=== PATIENT | female | born 1995 | race African-American/Black ===

== ENCOUNTER 2018-12-10 03:13 | Emergency (ER) | payer OTHER ==
[~2018-12-10] VITALS: Ht 149.9 cm; Wt 76.2 kg
[2018-12-10 03:29] VITALS: BP 127/80
[2018-12-10] MEDS ORDERED: KETOROLAC 60 MG/2 ML VIAL. IM ONE (04:00)
[2018-12-10] MEDS ORDERED: DICL50TA4 PO (04:07)
--- NOTE | 2018-12-10 04:08 | PHYS DOC ---
Past Medical History Past Medical History: Other Additional Past Medical Histor: palpitations Past Surgical History: No Surgical History Alcohol Use: None Drug Use: None Adult General Chief Complaint Chief Complaint: RIB PAIN HPI HPI Patient is a 23-year-old female who presents with complaint of left-sided rib pain. Patient states that she was stretching earlier and felt a pop in her left lower rib. She states that since that time she has had a sharp stabbing pain with movement and with deep breathing. She states that she is having a hard time moving around due to that pain. She denies any recent injuries. She denies any coughing or shortness of breath. She also denies any lower extremity pain or swelling. Patient rates pain as moderate.[] Review of Systems Review of Systems Constitutional: Denies fever or chills [] Respiratory: Denies cough or shortness of breath [] Cardiovascular: No additional information not addressed in HPI [] GI: Denies abdominal pain, nausea, vomiting or diarrhea [] Musculoskeletal: Denies back pain or joint pain [] Integument: Denies rash or skin lesions [] Current Medications Current Medications Current Medications Medications (Trade) Dose Ordered Sig/Balbina Start Time Stop Time Status Last Admin Dose Admin Ketorolac Tromethamine (Toradol Im) 60 mg 1X ONCE 12/10/18 04:00 12/10/18 04:01 DC 12/10/18 03:44 60 MG Allergies Allergies Allergies Coded Allergies Type Severity Reaction Last Updated Verified No Known Drug Allergies 12/10/18 No Physical Exam Physical Exam Constitutional: Well developed, well nourished, no acute distress, non-toxic appearance. [] Cardiovascular: Regular rate and rhythm. There is reproducible chest wall tenderness along the left lower lateral rib margin.[] Lungs & Thorax: Bilateral breath sounds clear to auscultation [] Abdomen: Bowel sounds normal, soft, no tenderness. [] Skin: Warm, dry, no erythema, no rash. [] Current Patient Data Vital Signs Vital Signs Date Time Temp Pulse Resp B/P (MAP) Pulse Ox O2 Delivery O2 Flow Rate FiO2 12/10/18 03:29 98.0 90 14 127/80 (96) 99 Room Air 98.0 EKG EKG [] Radiology/Procedures Radiology/Procedures [] Impressions: Left rib series demonstrates no acute bony abnormalities. Course & Med Decision Making Course & Med Decision Making Pertinent Labs and Imaging studies reviewed. (See chart for details) [] Dragon Disclaimer Dragon Disclaimer This electronic medical record was generated, in whole or in part, using a voice recognition dictation system. Departure Departure Impression: Primary Impression: Costochondritis Disposition: HOME, SELF-CARE Condition: STABLE Referrals: NO PCP (PCP) Patient Instructions: Costochondritis Scripts Diclofenac Sodium (DICLOFENAC SODIUM) 50 Mg Tablet. 1 TAB PO BID PRN for PAIN, #20 TAB Prov: JESUS ANTONY Jr., DO 12/10/18 JESUS ANTONY Jr., DO Dec 10, 2018 04:08
--- NOTE | 2018-12-10 04:24 | RAD ---
Study: RIBS LEFT AND PA CHEST Indication: [place] a pop in the ribs. Comparison: None. Findings: Small cervical rib on the right. No displaced rib fracture identified. Unremarkable lungs and cardiomediastinal silhouette. Area of cholecystectomy clips. Impression: No acute rib fracture identified. Electronically signed by: GAVIOTA KO MD (12/10/2018 4:21 AM) [facility]
== END 2018-12-10 04:27 | disposition home or self-care (01) ==
LOC: ER 03:13
DX: M94.0 Chondrocostal junction syndrome [Tietze] (principal)
CPT/HCPCS: 71101; 96372; 99284; J1885

== ENCOUNTER 2019-09-13 11:56 | Emergency (ER) | payer OTHER ==
[~2019-09-13] VITALS: Ht 149.9 cm; Wt 71.0 kg
[~2019-09-13 11:56] MED LIST: DICL50TA4 PO
[2019-09-13 14:06] LABS: BASO % 0 % (0-3); EOS % 1 % (0-3); HEMATOCRIT 42.6 % (36.0-47.0); HEMOGLOBIN 14.5 g/dL (12.0-15.5); LYMPH # 1.9 x10^3/uL (1.0-4.8); LYMPH % 30 % (24-48); MEAN CORPUSCULAR HEMOGLOBIN 32 pg (25-35); MEAN CORPUSCULAR HGB CONC 34 g/dL (31-37); MEAN CORPUSCULAR VOLUME 94 fL (79-100); MONO # 0.6 x10^3/uL (0.0-1.1); MONO % 9 % (0-9); NEUT # 3.9 x10^3/uL (1.8-7.7); NEUT % 61 % (31-73); PLATELET COUNT 326 x10^3/uL (140-400); RED BLOOD COUNT 4.52 x10^6/uL (3.50-5.40); RED CELL DISTRIBUTION WIDTH 13.2 % (11.5-14.5); WHITE BLOOD COUNT 6.4 x10^3/uL (4.0-11.0)
[2019-09-13 14:18] LABS: BILIRUBIN,URINE NEGATIVE (NEG); CLARITY,URINE CLEAR; COLOR,URINE YELLOW; NITRITE,URINE NEGATIVE (NEG); PROTEIN,URINE NEGATIVE (NEG-TRACE); UROBILINOGEN,URINE 0.2 mg/dL (0.2 mg/dL)
[2019-09-13 14:27] LABS: SQUAMOUS EPITHELIAL CELL,UR MANY /LPF
[2019-09-13 14:28] LABS: BACTERIA,URINE FEW /HPF (0-FEW); RBC,URINE 0 /HPF (0-2)
--- NOTE | 2019-09-13 14:33 | PHYS DOC ---
Past Medical History Past Medical History: High Cholesterol, Other Additional Past Medical Histor: palpitations Past Surgical History: Cholecystectomy Additional Past Surgical Histo: GALLBLADDER REMOVED AT 16 YEARS OLD Smoking Status: Never Smoker Alcohol Use: None Drug Use: None General Adult EDM: Chief Complaint: VAGINAL BLEEDING HPI: HPI: Patient is a 24 year old female who presents to the emergency department with complaints of vaginal bleeding every day for the last 4 weeks. She states she is gone through as many as 10-12 tampons per day. She denies any nausea, vomiting, diarrhea, abdominal pain, fever, cough, dizziness, shortness of drew th, rash, sore throat, dysuria, increased urinary frequency, or hematuria. Patient states that she currently takes Estarylla control for the last 11 months. She denies missing any of her control pills recently. She denies any irregular vaginal discharge prior to the onset of her bleeding. She denies any concerns of sexually transmitted infection. Patient currently denies any pain. Review of Systems: Review of Systems: Complete ROS is negative unless otherwise stated in the HPI. Heart Score: Risk Factors: Risk Factors: DM, Current or recent (<one month) smoker, HTN, HLP, family history of CAD, obesity. Risk Scores: Score 0 - 3: 2.5% MACE over next 6 weeks - Discharge Home Score 4 - 6: 20.3% MACE over next 6 weeks - Admit for Clinical Observation Score 7 - 10: 72.7% MACE over next 6 weeks - Early Invasive Strategies Allergies: Allergies: Allergies Coded Allergies Type Severity Reaction Last Updated Verified No Known Drug Allergies 12/10/18 No Physical Exam: PE: Constitutional: Well developed, well nourished, no acute distress, non-toxic appearance. HENT: Normocephalic, atraumatic, bilateral external ears normal, nose normal. Eyes: PERRLA, EOMI, conjunctiva normal, no discharge. Neck: Normal range of motion, no stridor. 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 Extremities: No cyanosis, ROM intact, no edema. Neurologic: Alert and oriented X 3, no focal deficits noted. Psychologic: Affect normal, judgement normal, mood normal. Current Patient Data: Labs: Laboratory Tests Test 09/13/19 12:40 09/13/19 12:47 09/13/19 13:58 Urine Collection Type Unknown Urine Color Yellow Urine Clarity Clear Urine pH 6.0 (<5.0-8.0) Urine Specific [place] 1.025 (1.000-1.030) Urine Protein Negative mg/dL (NEG-TRACE) Urine Glucose (UA) Negative mg/dL (NEG) Urine Ketones (Stick) Negative mg/dL (NEG) Urine Blood Large (NEG) Urine Nitrite Negative (NEG) Urine Bilirubin Negative (NEG) Urine Urobilinogen Dipstick 0.2 mg/dL (0.2 mg/dL) Urine Leukocyte Esterase Moderate (NEG) Urine RBC 0 /HPF (0-2) Urine WBC 11-20 /HPF (0-4) Urine Squamous Epithelial Cells Many /LPF Urine Bacteria Few /HPF (0-FEW) Urine Mucus Mod /LPF POC Urine HCG, Qualitative Hcg negative (Negative) White Blood Count 6.4 x10^3/uL (4.0-11.0) Red Blood Count 4.52 x10^6/uL (3.50-5.40) Hemoglobin 14.5 g/dL (12.0-15.5) Hematocrit 42.6 % (36.0-47.0) Mean Corpuscular Volume 94 fL (79-100) Mean Corpuscular Hemoglobin 32 pg (25-35) Mean Corpuscular Hemoglobin Concent 34 g/dL (31-37) Red Cell Distribution Width 13.2 % (11.5-14.5) Platelet Count 326 x10^3/uL (140-400) Neutrophils (%) (Auto) 61 % (31-73) Lymphocytes (%) (Auto) 30 % (24-48) Monocytes (%) (Auto) 9 % (0-9) Eosinophils (%) (Auto) 1 % (0-3) Basophils (%) (Auto) 0 % (0-3) Neutrophils # (Auto) 3.9 x10^3/uL (1.8-7.7) Lymphocytes # (Auto) 1.9 x10^3/uL (1.0-4.8) Monocytes # (Auto) 0.6 x10^3/uL (0.0-1.1) Eosinophils # (Auto) 0.0 x10^3/uL (0.0-0.7) Basophils # (Auto) 0.0 x10^3/uL (0.0-0.2) Laboratory Tests 09/13/19 13:58 Microbiology 09/13/19 Wet Prep - Final, Complete Vital Signs: Vital Signs Date Time Temp Pulse Resp B/P (MAP) Pulse Ox O2 Delivery O2 Flow Rate FiO2 09/13/19 14:00 88 126/74 (91) 100 09/13/19 13:30 20 09/13/19 12:48 98.5 Room Air 98.5 EKG: EKG: [] Radiology/Procedures: Radiology/Procedures: [] Course & Med Decision Making: Course & Med Decision Making Pertinent Labs and Imaging studies reviewed. (See chart for details) [] Dragon Disclaimer: Dragon Disclaimer: This electronic medical record was generated, in whole or in part, using a voice recognition dictation system. Departure Departure Impression: Primary Impression: Dysfunctional uterine bleeding Disposition: HOME, SELF-CARE Condition: STABLE Referrals: ANTONELLA RODRIGUEZ MD Patient Instructions: Uterine Bleeding, Dysfunctional, [id number] Additional Instructions: Your labs in the emergency department today were unremarkable, your gonorrhea and chlamydia testing is still pending. I recommend that you follow-up with an SLEEP MEDICINE PHYSICIAN for further evaluation of your irregular vaginal bleeding, you may need to change your control as we discussed. Return to the ER if symptoms worsen. Justicifation of Admission Dx: Justifications for Admission: Justification of Admission Dx: N/A GEETA LOPEZ CFO Sep 13, 2019 14:32
[2019-09-13 14:45] VITALS: BP 150/88
[2019-09-14 21:08] LABS: GC PROBE Negative (Negative)
== END 2019-09-13 14:50 | disposition home or self-care (01) ==
LOC: ER 11:56
DX: N93.8 Other specified abnormal uterine and vaginal bleeding (principal); E78.00 Pure hypercholesterolemia, unspecified; Z90.49 Acquired absence of other specified parts of digestive tract; Z98.890 Other specified postprocedural states
CPT/HCPCS: 36415; 81001; 81025; 85025; 87086; 87491; 87591; 99285; Q0111

== ENCOUNTER 2020-02-07 13:14 | Emergency (ER) | payer OTHER ==
[~2020-02-07] VITALS: Ht 152.4 cm; Wt 75.0 kg
--- NOTE | 2020-02-07 14:25 | PHYS DOC ---
Past Medical History Past Medical History: High Cholesterol, Other Additional Past Medical Histor: palpitations (CHRISTO OCAMPO APRN) Past Surgical History: Cholecystectomy Additional Past Surgical Histo: GALLBLADDER REMOVED AT 16 YEARS OLD (CHRISTO OCAMPO APRN) Smoking Status: Never Smoker Alcohol Use: None Drug Use: None (CHRISTO OCAMPO APRN) General Adult EDM: Chief Complaint: ABDOMINAL PAIN IN HPI: HPI: Patient is a 24 year old female G3, P2, LMP 11/06/2019, EDC 08/10/2020, presents to the emergency room for evaluation of lower abdominal cramping and low back pain for 3 weeks. She denies any vaginal discharge or bleeding. States that she has had 1 OB appointment at [facility] but does not intend to continue using their services. She has not yet signed up for another instructor physical education. (CHRISTO OCAMPO APRN) Review of Systems: Review of Systems: Constitutional: Denies fever or chills. [] Eyes: Denies change in visual acuity. [] HENT: Denies nasal congestion or sore throat. [] Respiratory: Denies cough or shortness of breath. [] Cardiovascular: Denies chest pain or edema. [] GI: reports abdominal pain, denies nausea, vomiting, bloody stools or diarrhea. [] : Denies dysuria. [] Musculoskeletal: reports back pain denies joint pain. [] Integument: Denies rash. [] Neurologic: Denies headache, focal weakness or sensory changes. [] Endocrine: Denies polyuria or polydipsia. [] Lymphatic: Denies swollen glands. [] Psychiatric: Denies depression or anxiety. [] (CHRISTO OCAMPO APRN) Heart Score: Risk Factors: Risk Factors: DM, Current or recent (<one month) smoker, HTN, HLP, family hist ory of CAD, obesity. Risk Scores: Score 0 - 3: 2.5% MACE over next 6 weeks - Discharge Home Score 4 - 6: 20.3% MACE over next 6 weeks - Admit for Clinical Observation Score 7 - 10: 72.7% MACE over next 6 weeks - Early Invasive Strategies (CHRISTO OCAMPO APRN) Allergies: Allergies: Allergies Coded Allergies Type Severity Reaction Last Updated Verified No Known Drug Allergies 12/10/18 No (CHRISTO OCAMPO APRN) Physical Exam: PE: Constitutional: Well developed, well nourished, no acute distress, non-toxic appearance. [] HENT: Normocephalic, atraumatic, bilateral external ears normal, ] Eyes: PERRLA, EOMI, conjunctiva normal, no discharge. [] Neck: Normal range of motion, no tenderness, supple, no stridor. [] Cardiovascular:Heart rate regular rhythm, no murmur [] Lungs & Thorax: Bilateral breath sounds clear to auscultation [] Abdomen: Bowel sounds normal, soft, mild tenderness to palpation to lower abd, no masses, no pulsatile masses. [] : [place] PRESENT FOR EXAM, NO DISCHARGE OR BLEEDING, OS CLOSED Skin: Warm, dry, no erythema, no rash. [] Back: lumbar ttp, no midline ttp, no CVA tenderness. [] Extremities: No tenderness, no cyanosis, no clubbing, ROM intact, no edema. [] Neurologic: Alert and oriented X 3, normal motor function, normal sensory func tion, no focal deficits noted. [] Psychologic: Affect normal, judgement normal, mood normal. [] (CHRISTO OCAMPO APRN) Current Patient Data: Labs: Laboratory Tests Test 02/07/20 14:10 02/07/20 14:20 Urine Collection Type Unknown Urine Color Yellow Urine Clarity Clear Urine pH 6.0 Urine Specific [place] 1.020 Urine Protein Negative mg/dL Urine Glucose (UA) Negative mg/dL Urine Ketones (Stick) Negative mg/dL Urine Blood Negative Urine Nitrite Negative Urine Bilirubin Negative Urine Urobilinogen Dipstick 0.2 mg/dL Urine Leukocyte Esterase Negative Urine RBC Occ /HPF Urine WBC Occ /HPF Urine Squamous Epithelial Cells Mod /LPF Urine Bacteria Mod /HPF Urine Mucus Mod /LPF Bedside Urine HCG, Qualitative Hcg positive White Blood Count 8.4 x10^3/uL Red Blood Count 4.23 x10^6/uL Hemoglobin 13.3 g/dL Hematocrit 39.2 % Mean Corpuscular Volume 93 fL Mean Corpuscular Hemoglobin 32 pg Mean Corpuscular Hemoglobin Concent 34 g/dL Red Cell Distribution Width 14.0 % Platelet Count 328 x10^3/uL Neutrophils (%) (Auto) 77 % Lymphocytes (%) (Auto) 15 % Monocytes (%) (Auto) 7 % Eosinophils (%) (Auto) 0 % Basophils (%) (Auto) 1 % Neutrophils # (Auto) 6.4 x10^3/uL Lymphocytes # (Auto) 1.3 x10^3/uL Monocytes # (Auto) 0.6 x10^3/uL Eosinophils # (Auto) 0.0 x10^3/uL Basophils # (Auto) 0.0 x10^3/uL Sodium Level 137 mmol/L Potassium Level 3.5 mmol/L Chloride Level 104 mmol/L Carbon Dioxide Level 24 mmol/L Anion Gap 9 Blood Urea Nitrogen 6 mg/dL Creatinine 0.7 mg/dL Estimated GFR (Cockcroft-Gault) 125.5 BUN/Creatinine Ratio 9 Glucose Level 82 mg/dL Calcium Level 8.9 mg/dL Total Bilirubin 0.1 mg/dL Aspartate Amino Transf (AST/SGOT) 15 U/L Alanine Aminotransferase (ALT/SGPT) 13 U/L Alkaline Phosphatase 49 U/L Total Protein 7.6 g/dL Albumin 3.4 g/dL Albumin/Globulin Ratio 0.8 Current Medications Medications (Trade) Dose Ordered Sig/Balbina Route PRN Reason Start Time Stop Time Status Last Admin Dose Admin Sodium Chloride 1,000 ml @ 1,000 mls/hr 1X ONCE IV 02/07/20 15:30 02/07/20 16:29 02/07/20 15:52 Laboratory Tests Test 02/07/20 14:10 POC Urine HCG, Qualitative Hcg positive (Negative) (CHRISTO OCAMPO APRN) EKG: EKG: [] (CHRISTO OCAMPO APRN) Radiology/Procedures: Radiology/Procedures: []PROCEDURE: OB LIMITED Exam: Ultrasound OB limited Indication: Lower abdominal cramping and Technique: Real-time grayscale and color Doppler images of the pelvis were obtained by the department ocean freight manager. Comparisons: None FINDINGS: The uterus there is a single live intrauterine gestation. heart rate measures 144 bpm. measurements as follows: BPD: 2.4 cm corresponding to 14 weeks 0 days Head circumference: 9 point portion corresponding to 14 weeks 2 days Abdominal circumference: 7.7 cm corresponding to 14 weeks 1 day Femur length: 147 corresponding to 14 weeks 0 days Cervical length measures 5.9 cm. BLACK measures 9.4 cm No free fluid identified in the pelvis. IMPRESSION: 1. Single live intrauterine gestation measuring 14 weeks 1 day by current ultrasound. 2. Dedicated survey is recommended to 18-20 weeks gestation. Electronically signed by: Tito Martinez MD (02/07/2020 3:42 PM) [facility] (CHRISTO OCAMPO APRN) Course & Med Decision Making: Course & Med Decision Making Pertinent Labs and Imaging studies reviewed. (See chart for details) [] Reexamination, patient feeling better, she is received a liter of IV fluids, OB ultrasound indicates IUP 14 weeks, heart rate 144, patient is having no vaginal bleeding. Recommend she contact instructor physical education tomorrow to schedule follow-up appointment. Strict pelvic rest until OB follow-up. Return to ER for new or worsening symptoms. Patient verbalized understanding agrees with plan of care. (CHRISTO OCAMPO APRN) Course & Med Decision Making I have reviewed the PA/DIGITAL MARKETING ASSISTANT's note and Plan of Care. I was available for consultation as needed during the patient's visit in the emergency department. I agree with the clinical impression, plans and disposition. (GAYLE ESTRADA MD) Dragon Disclaimer: Dragon Disclaimer: This electronic medical record was generated, in whole or in part, using a voice recognition dictation system. (CHRISTO OCAMPO APRN) Departure Departure Impression: Primary Impression: Abdominal pain affecting Disposition: 01 DC HOME SELF CARE/HOMELESS Referrals: NO PCP (PCP) JOSTIN DUNN Jr, MD Patient Instructions: Abdominal Pain During CHRISTO OCAMPO APRN Feb 07, 2020 14:25 GAYLE ESTRADA MD Feb 07, 2020 16:30
[2020-02-07 14:31] LABS: BILIRUBIN,URINE NEGATIVE (NEG); CLARITY,URINE CLEAR; COLOR,URINE YELLOW; NITRITE,URINE NEGATIVE (NEG); PROTEIN,URINE NEGATIVE (NEG-TRACE); UROBILINOGEN,URINE 0.2 mg/dL (0.2 mg/dL)
[2020-02-07 14:34] LABS: BASO % 1 % (0-3); EOS % 0 % (0-3); HEMATOCRIT 39.2 % (36.0-47.0); HEMOGLOBIN 13.3 g/dL (12.0-15.5); LYMPH # 1.3 x10^3/uL (1.0-4.8); LYMPH % 15 % (24-48); MEAN CORPUSCULAR HEMOGLOBIN 32 pg (25-35); MEAN CORPUSCULAR HGB CONC 34 g/dL (31-37); MEAN CORPUSCULAR VOLUME 93 fL (79-100); MONO # 0.6 x10^3/uL (0.0-1.1); MONO % 7 % (0-9); NEUT # 6.4 x10^3/uL (1.8-7.7); NEUT % 77 % (31-73); PLATELET COUNT 328 x10^3/uL (140-400); RED BLOOD COUNT 4.23 x10^6/uL (3.50-5.40); WHITE BLOOD COUNT 8.4 x10^3/uL (4.0-11.0)
[2020-02-07 14:38] LABS: BACTERIA,URINE MOD /HPF (0-FEW); RBC,URINE OCC /HPF (0-2); WBC,URINE OCC /HPF (0-4)
[2020-02-07 14:44] LABS: CALCIUM 8.9 mg/dL (8.5-10.1); CREATININE 0.7 mg/dL (0.6-1.0); GFR 125.5; POTASSIUM 3.5 mmol/L (3.5-5.1)
[2020-02-07 14:48] LABS: ALBUMIN 3.4 g/dL (3.4-5.0); ALBUMIN/GLOBULIN RATIO 0.8 (1.0-1.7); TOTAL BILIRUBIN 0.1 mg/dL (0.2-1.0); TOTAL PROTEIN 7.6 g/dL (6.4-8.2)
[2020-02-07] MEDS ORDERED: IV NORMAL SALINE 1000ML BAG 1,000 ML IV ONE (15:30)
--- NOTE | 2020-02-07 15:44 | RAD ---
Exam: Ultrasound OB limited Indication: Lower abdominal cramping and Technique: Real-time grayscale and color Doppler images of the pelvis were obtained by the department full time. Comparisons: None FINDINGS: The uterus there is a single live intrauterine gestation. heart rate measures 144 bpm. measurements as follows: BPD: 2.4 cm corresponding to 14 weeks 0 days Head circumference: 9 point portion corresponding to 14 weeks 2 days Abdominal circumference: 7.7 cm corresponding to 14 weeks 1 day Femur length: 147 corresponding to 14 weeks 0 days Cervical length measures 5.9 cm. BLACK measures 9.4 cm No free fluid identified in the pelvis. IMPRESSION: 1. Single live intrauterine gestation measuring 14 weeks 1 day by current ultrasound. 2. Dedicated survey is recommended to 18-20 weeks gestation. Electronically signed by: Tito Martinez MD (02/07/2020 3:42 PM) [facility]
[2020-02-07 17:23] VITALS: BP 125/75
[2020-02-08 19:09] LABS: GC PROBE Negative (Negative)
== END 2020-02-07 17:28 | disposition home or self-care (01) ==
LOC: ER 13:14
DX: O26.892 Other specified pregnancy related conditions, second trimester (principal); R10.30 Lower abdominal pain, unspecified; M54.5 Low back pain; E78.00 Pure hypercholesterolemia, unspecified; Z90.49 Acquired absence of other specified parts of digestive tract
CPT/HCPCS: 76815; 80053; 81001; 81025; 85025; 87491; 87591; 96360; 99285; J7030; Q0111

== ENCOUNTER 2020-04-27 12:55 | Emergency (ER) | payer OTHER ==
[~2020-04-27] VITALS: Ht 149.9 cm; Wt 84.3 kg
--- NOTE | 2020-04-27 13:23 | PHYS DOC ---
Past Medical History Past Medical History: High Cholesterol, Other Additional Past Medical Histor: palpitations Past Surgical History: Cholecystectomy Additional Past Surgical Histo: GALLBLADDER REMOVED AT 16 YEARS OLD Smoking Status: Never Smoker Alcohol Use: None Drug Use: None General Adult EDM: Chief Complaint: SHORTNESS OF BREATH HPI: HPI: Patient is a 24 year old female who presents with presents emergency department for shortness of breath. Patient is approximately 25 weeks gestation. However, she has not had a menstrual cycle since October 2019. She has not established care. She reports she was seen at [facility] at 10 weeks and had ultrasound at that time. This was in December. Patient is . Patient reports shortness of breath for 1 week. Shortness breath is constant. Associated midsternal chest pain. Does have some intermittent palpitations. Patient also reports some lower pelvic pressure. She has had some intermittent back pain. Patient reports history of low back pain issues with 2 previous pregnancies. 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 She denies fevers cough. She has had some nasal congestion. No cough. No fevers that she knows of. She denies sore throat nausea vomiting. He has had some urinary frequency. No dysuria hematuria vaginal bleeding or vaginal discharge. Patient denies smoking drugs or alcohol abuse. Patient is scheduled to see Dr. Webb on April 30. Review of Systems: Review of Systems: Constitutional: Denies fever or chills. [] Eyes: Denies change in visual acuity. [] HENT: Denies nasal congestion or sore throat. [] Respiratory: Denies cough or shortness of breath. [] Cardiovascular: Denies chest pain or edema. [] GI: Denies abdominal pain, nausea, vomiting, bloody stools or diarrhea. [] : Denies dysuria. [] Musculoskeletal: Denies back pain or joint pain. [] Integument: Denies rash. [] Neurologic: Denies headache, focal weakness or sensory changes. [] Endocrine: Denies polyuria or polydipsia. [] Lymphatic: Denies swollen glands. [] Psychiatric: Denies depression or anxiety. [] Heart Score: HEART Score for Chest Pain: HEART Score for Chest Pain Response (Comments) Value History Slighlty/Non-Suspicious 0 ECG Normal 0 Age < 45 0 Risk Factors No Risk Factors 0 Troponin < Normal Limit 0 Total 0 Risk Factors: Risk Factors: DM, Current or recent (<one month) smoker, HTN, HLP, family history of CAD, obesity. Risk Scores: Score 0 - 3: 2.5% MACE over next 6 weeks - Discharge Home Score 4 - 6: 20.3% MACE over next 6 weeks - Admit for Clinical Observation Score 7 - 10: 72.7% MACE over next 6 weeks - Early Invasive Strategies Allergies: Allergies: Allergies Coded Allergies Type Severity Reaction Last Updated Verified No Known Drug Allergies 04/27/20 No Physical Exam: PE: GENERAL APPEARANCE: Awake and alert. Cooperative. No acute distress. Non toxic appearing. HEAD: Normocephalic. Atraumatic. EYES: EOM's grossly intact. Sclera anicteric. Conjunctiva clear ENT:. Airway patent. Mucous membranes moist. No trismus. Tolerating secretions. NECK: Supple. Trachea midline. HEART: Regular rate and rhythm. Radial pulses 2+. Good capillary refill. LUNGS: Respirations unlabored. Clear to auscultation bilaterally. No rales, rhonchi, wheezing or retractions. Tenderness palpation over the sternum and left anterior chest wall. ABDOMEN: Soft. Non-tender. No guarding or rebound. No CVA tenderness. No palpable or pulsatile mass. Gravid uterus. EXTREMITIES: No acute deformities. No edema, erythema or calf tenderness. SKIN: Warm and dry. No rash. NEUROLOGICAL: Alert and oriented x3. No gross neurological deficits. Moves all 4 extremities spontaneously. PSYCHIATRIC: Normal mood. EKG: EKG: EKG interpretation shows sinus tachycardia ventricular rate of 101 bpm. NY interval 130 ms. QRS duration is 66 ms. QTc 332 ms. QTC of [address] segment elevations. Radiology/Procedures: Radiology/Procedures: [] Chest x-ray and CT of the chest ROCEDURE: CHEST PA & LATERAL INDICATION: Reason: sob r/o PE / Spl. Instructions: / History: COMPARISON: November 2018 FINDINGS: 2 views of the chest obtained. No definite focal airspace consolidation or pulmonary edema. Cardiac silhouette is mildly prominent in size. No definite focal airspace consolidation or pulmonary edema. IMPRESSION: * No focal airspace consolidation or edema. Electronically signed by: Christiano Nazario MD (04/27/2020 1:50 PM) [id number] DICTATED and SIGNED BY: CHRISTIANO NAZARIO MD DATE: 04/27/20 [id number] PROCEDURE: CT ANGIOGRAPHY CHEST EXAMINATION: CTA CHEST CLINICAL HISTORY: Shortness of breath Technique: Spiral CT acquisition of the chest from the thoracic inlet to the upper abdomen following IV contrast with coronal and sagittal reformatted images also provided for review. CT Dose Reduction Employed: One or more of the following individualized dose reduction techniques were utilized for this examination: 1. Automated exposure control 2. Adjustment of the mA and/or kV according to patient size 3. Use of iterative reconstruction technique. Comparison: Chest radiograph same day FINDINGS: Limitations: Suboptimal opacification of pulmonary arterial system limits evaluation. Pulmonary Vasculature: No evidence of main, lobar, or proximal segmental pulmonary arterial thrombus. Main pulmonary artery normal in caliber. Lung Parenchyma, Pleura, and Airways: Minimal dependent subsegmental atelectasis bilaterally. No focal consolidation. No pleural effusion. Central airways patent. Lower Neck, Lymph Nodes, and Mediastinum: Visualized thyroid gland within normal limits. No mediastinal, hilar, or axillary lymphadenopathy. Heart, Pericardium, and Thoracic Vessels: Cardiac chambers normal in size. No pericardial effusion. Thoracic aorta within normal limits. No coronary artery atherosclerotic calcifications are noted, although the study is not optimized for coronary assessment. Bones and Soft Tissues: No evidence of acute osseous abnormality. Upper Abdomen: Small hiatal hernia. IMPRESSION: No evidence of main, lobar, or proximal segmental pulmonary embolus on limited evaluation as described. No evidence of acute cardiopulmonary abnormality. Electronically signed by: Seth Gomes DO (04/27/2020 3:31 PM) [id number] DICTATED and SIGNED BY: SETH GOMES DO DATE: 04/27/20 [id number] Course & Med Decision Making: Course & Med Decision Making Medical decision making: This is a 24-year-old female presents with chest pain and shortness of breath that started 1 week ago. Patient is approximately 25 weeks gestation she has not had her first appointment with SUBMARINE ADVISORY TEAM WATCH OFFICER. First appointment is on April 30. Patient was also having some lower abdominal pressure. SUBMARINE ADVISORY TEAM WATCH OFFICER triage nurse came down and evaluated the patient. heart tones in place. Patient is not having any contractions. Cervix is closed. Patient's initial blood pressure 160s systolically. On reevaluation patient systolic blood pressure in the 100s. She is resting comfortably. She appears in no acute respiratory distress. Patient does have reproducible chest wall tenderness. Chest x-ray, CTA, troponin all normal. Patient was given fluids and acetaminophen. Urine does appear potentially infected. With patient's symptoms we will treat for urinary tract infection. Patient given first dose of antibiotics in the emergency department. I did speak with the SUBMARINE ADVISORY TEAM WATCH OFFICER Dr. Webb, I explained the patient's symptoms and lab findings. Recommends US shows single IUP with fetus at 25 weeks 1 day. Heart rate of 143. no further emergency department recommendations. Had lengthy discussion with patient about symptoms and findings. She feels comfortable with discharge. Patient refused testing for coronavirus. I recommended it but she declined. She should quarantine for total of 14 days of symptoms. She is to return to the emergency department if symptoms worsen or she has any other concerns. The patient is given strict emergency department return precautions and follow up in formation. They express a verbal understanding of my instructions. The patient is aware of any labs and imaging. All questions are answered and patient is stable at the time of discharge. Patient needs a follow-up family physician. She is given a list of family physicians. Kari Disclaimer: Kari Disclaimer: This electronic medical record was generated, in whole or in part, using a voice recognition dictation system. Departure Departure Impression: Primary Impression: Chest pain Qualified Codes: R07.9 - Chest pain, unspecified Additional Impressions: Dyspnea Qualified Codes: R06.00 - Dyspnea, unspecified Second trimester Urinary tract infection Qualified Codes: N30.00 - Acute cystitis without hematuria Disposition: 01 [place] HOME SELF CARE/HOMELESS Referrals: NO PCP (PCP) JOSTIN WEBB Jr, MD Patient Instructions: Back Pain in , Chest Pain (Nonspecific), - Urinary Tract Infection, Shortness of Breath, [id number] Additional Instructions: Please call primary care physician list that was given to you for follow-up appointment as soon as possible. Please keep your appointment with your SUBMARINE ADVISORY TEAM WATCH OFFICER on Thursday, April 30. Please return to the emergency department if symptoms worsen or if you have any other concerns. Scripts Nitrofurantoin Monohyd/M-Cryst (MACROBID 100 MG CAPSULE) 100 Mg Capsule 1 CAP PO BID for 7 Days, #14 CAP 0 Refills Prov: GABRIELLA COBIAN DO 04/27/20 GABRIELLA COBIAN DO Apr 27, 2020 13:23
[2020-04-27 13:35] LABS: BILIRUBIN,URINE NEGATIVE (NEG); CLARITY,URINE CLEAR; COLOR,URINE YELLOW; NITRITE,URINE NEGATIVE (NEG); PROTEIN,URINE NEGATIVE (NEG-TRACE); UROBILINOGEN,URINE 0.2 mg/dL (0.2 mg/dL)
[2020-04-27 13:35] LABS: BASO # 0.1 x10^3/uL (0.0-0.2); BASO % 1 % (0-3); EOS # 0.1 x10^3/uL (0.0-0.7); EOS % 1 % (0-3); HEMATOCRIT 33.9 % (36.0-47.0); HEMOGLOBIN 11.6 g/dL (12.0-15.5); LYMPH # 2.1 x10^3/uL (1.0-4.8); LYMPH % 21 % (24-48); MEAN CORPUSCULAR HEMOGLOBIN 32 pg (25-35); MEAN CORPUSCULAR HGB CONC 34 g/dL (31-37); MEAN CORPUSCULAR VOLUME 95 fL (79-100); MONO # 1.1 x10^3/uL (0.0-1.1); MONO % 11 % (0-9); NEUT # 6.6 x10^3/uL (1.8-7.7); NEUT % 67 % (31-73); PLATELET COUNT 314 x10^3/uL (140-400); RED BLOOD COUNT 3.57 x10^6/uL (3.50-5.40); RED CELL DISTRIBUTION WIDTH 13.4 % (11.5-14.5); WHITE BLOOD COUNT 9.8 x10^3/uL (4.0-11.0)
--- NOTE | 2020-04-27 13:45 | EKG ---
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
[2020-04-27 13:46] LABS: CREATININE 0.8 mg/dL (0.6-1.0); GFR 107.6; POTASSIUM 4.1 mmol/L (3.5-5.1)
[2020-04-27 13:52] LABS: ALBUMIN 2.8 g/dL (3.4-5.0); ALBUMIN/GLOBULIN RATIO 0.7 (1.0-1.7); TOTAL BILIRUBIN 0.3 mg/dL (0.2-1.0); TOTAL PROTEIN 7.1 g/dL (6.4-8.2)
--- NOTE | 2020-04-27 13:52 | RAD ---
INDICATION: Reason: sob r/o PE / Spl. Instructions: / History: COMPARISON: November 2018 FINDINGS: 2 views of the chest obtained. No definite focal airspace consolidation or pulmonary edema. Cardiac silhouette is mildly prominent i n size. No definite focal airspace consolidation or pulmonary edema. IMPRESSION: * No focal airspace consolidation or edema. Electronically signed by: Maicol Danielle MD (04/27/2020 1:50 PM) [id number]
[2020-04-27 13:57] LABS: RBC,URINE 0 /HPF (0-2); WBC,URINE OCC /HPF (0-4)
[2020-04-27 13:58] LABS: BACTERIA,URINE FEW /HPF (0-FEW)
[2020-04-27] MEDS ORDERED: CONTRAST GIVEN. MC PRN (14:15)
[2020-04-27] MEDS ORDERED: IOHEXOL 350 MG/ML 100 ML VIAL. IV ONE (14:15)
--- NOTE | 2020-04-27 15:34 | RAD ---
EXAMINATION: CTA CHEST CLINICAL HISTORY: Shortness of breath Technique: Spiral CT acquisition of the chest from the thoracic inlet to the upper abdomen following IV contrast with coronal and sagittal reformatted images also provided for review. CT Dose Reduction Employed: One or more of the following individualized dose reduction techniques wer e utilized for this examination: 1. Automated exposure control 2. Adjustment of the mA and/or kV ac cording to patient size 3. Use of iterative reconstruction technique. Comparison: Chest radiograph same day FINDINGS: Limitations: Suboptimal opacification of pulmonary arterial system limits evaluation. Pulmonary Vasculature: No evidence of main, lobar, or proximal segmental pulmonary arterial thrombus. Main pulmonary artery normal in caliber. Lung Parenchyma, Pleura, and Airways: Minimal dependent subsegmental atelectasis bilaterally. No foca l consolidation. No pleural effusion. Central airways patent. Lower Neck, Lymph Nodes, and Mediastinum: Visualized thyroid gland within normal limits. No mediastin al, hilar, or axillary lymphadenopathy. Heart, Pericardium, and Thoracic Vessels: Cardiac chambers normal in size. No pericardial effusion. T horacic aorta within normal limits. No coronary artery atherosclerotic calcifications are noted, alth ough the study is not optimized for coronary assessment. Bones and Soft Tissues: No evidence of acute osseous abnormality. Upper Abdomen: Small hiatal hernia. IMPRESSION: No evidence of main, lobar, or proximal segmental pulmonary embolus on limited evaluation as describe d. No evidence of acute cardiopulmonary abnormality. Electronically signed by: Seth El DO (04/27/2020 3:31 PM) [id number]
[2020-04-27] MEDS ORDERED: NITROFURANTOIN MONOHYD/M-CRYST 100 MG CAPSULE. PO ONE (16:30)
[2020-04-27] MEDS ORDERED: IV NORMAL SALINE 1000ML BAG 1,000 ML IV ONE (16:30)
[2020-04-27] MEDS ORDERED: ACETAMINOPHEN 500 MG TABLET PO ONE (16:30)
[2020-04-27] MEDS ORDERED: NITR100C62 PO (17:31)
[2020-04-27 18:00] VITALS: BP 118/68
--- NOTE | 2020-04-27 18:20 | RAD ---
Exam: Ultrasound OB limited Indication: Technique: Real-time grayscale and color Doppler images of the pelvis were obtained by the department washroom operator. Comparisons: 02/19/2020 FINDINGS: There is a single live intrauterine gestation with heart rate measured at 143 bpm. measurements as follows: BPD: 6.2 cm corresponding to 25 weeks 0 days Head circumference: 23.1 cm corresponding to 25 weeks 1 day Abdominal circumference: 20.9 cm corresponding to 25 weeks 3 days Femur length: 5.6 cm corresponding to 25 weeks 1 day Placenta is anterior and appears normal. Cervix appears long and closed measuring approximately 3.4 cm in length. IMPRESSION: Single live intrauterine gestation with measurements as described above. Electronically signed by: Tito Martinez MD (04/27/2020 6:17 PM) SWATI
== END 2020-04-27 18:00 | disposition home or self-care (01) ==
LOC: ER 12:55
DX: O26.892 Other specified pregnancy related conditions, second trimester (principal); R06.02 Shortness of breath; O23.12 Infections of bladder in pregnancy, second trimester; E78.00 Pure hypercholesterolemia, unspecified; Z90.49 Acquired absence of other specified parts of digestive tract; Z3A.25 25 weeks gestation of pregnancy
CPT/HCPCS: 36415; 71046; 71275; 76815; 80053; 81001; 84484; 85025; 87086; 93005; 99285; J7030; Q9967

== ENCOUNTER → 2020-06-13 | Outpatient (CLI) | payer OTHER ==
[~2020-06-13] MED LIST changes: +NITR100C62 PO
--- NOTE | 2020-06-14 09:53 | RAD ---
EXAM: Ultrasound US OB >14 WEEKS 06/13/2020 2:49 PM INDICATION: Uterine size date discrepancy. Gestational age by LMP 31 weeks 5 days COMPARISON: OB ultrasound 04/27/2019 FINDINGS: There is a single living intrauterine gestation in breech position. heart rate is 143 bpm. Plac enta is anterior. There appears to be complete placenta previa (ultrasound image 3 of 31). Small amou nt of fluid in the cervix. biometry: Biparietal diameter: 8.27 cm, 33 weeks 2 days Head circumference: 29.69 cm, 32 weeks 6 days Abdominal circumference: 28.45 cm, 32 weeks 3 days Femur length: 6.21 cm, 32 weeks 1 day HC/AC ratio: 1.04 BLACK: 10.1 centimeters. Estimated gestational age by ultrasound: 32 weeks 5 days. Estimated weight: 1986 g, 55th percen tile. IMPRESSION: 1. Single living intrauterine in breech position. 2. There appears to be complete placenta previa. Small amount of fluid in the cervix Recommend short interval follow-up ultrasound to reevaluate. 3. Estimated gestational age by ultrasound 32 weeks 5 days, EFW: 1986 g, 55th percentile. 4. BLACK: 10.1 cm. Electronically signed by: Courtney Villanueva MD (06/14/2020 9:50 AM) [id number]
== END ==
LOC: US 14:50
PROVIDERS: ATTEND Obstetrics & Gynecology
DX: O26.843 Uterine size-date discrepancy, third trimester (principal); O09.93 Supervision of high risk pregnancy, unspecified, third trimester; Z3A.32 32 weeks gestation of pregnancy
CPT/HCPCS: 76805

== ENCOUNTER → 2020-06-20 | Outpatient (CLI) | payer OTHER ==
--- NOTE | 2020-06-20 10:26 | CARD ---
MR#: [id number] Date of Study: 06/20/2020 Ordering Physician: MAKEDA VALDEZ, Referring Physician: MAKEDA VALDEZ, Tech: Ely Gould MILLIE APPROVED REPORT EXAM: Two-dimensional and M-mode echocardiogram with Doppler and color Doppler. Other Information Quality : Good Rhythm : Tachycardia INDICATION Chest Pain 33 Week Gestation 2D DIMENSIONS RVDd3.0 (2.9-3.5cm)Left Atrium(2D)3.5 (1.6-4.0cm) IVSd1.0 (0.7-1.1cm)Aortic Root(2D)2.5 (2.0-3.7cm) LVDd3.9 (3.9-5.9cm)LVOT Diameter2.0 (1.8-2.4cm) PWd1.1 (0.7-1.1cm)LVDs2.6 (2.5-4.0cm) FS (%) 32.3 %SV39.3 ml LVEF(%)61.3 (>50%) Aortic Valve AoV Peak Kenny.146.4cm/sAoV VTI20.3cm AO Peak GR.8.6mmHgLVOT Peak Kenny.136.6cm/s AO Mean GR.5mmHgAVA (VMAX)2.93cm2 YUE (VTI)3.60cm2 Mitral Valve MV E Qudtpxxm94.1cm/sMV DECEL XLVT93nm MV A Hjvbfdhq62.6cm/sE/A Ratio0.7 Tricuspid Valve TR P. Hinewfcn721aq/sRAP ZTTLXSKT6glLa TR Peak Gr.40pdYnGFTN52rePl Pulmonary Vein S1 Zvvtsjdh05.5cm/sD2 Ynafonyy94.5cm/s LEFT VENTRICLE The left ventricle is normal size. There is normal left ventricular wall thickness. The left ventricu lar systolic function is normal and the ejection fraction is within normal range. The Ejection Fracti on is 60-65%. There is normal LV segmental wall motion. The left ventricular diastolic function and f illing is normal for age. RIGHT VENTRICLE The right ventricle is normal size. The right ventricular systolic function is normal. ATRIA The left atrium size is normal. The right atrium size is normal. The interatrial septum is intact wit h no evidence for an atrial septal defect or patent foramen ovale as noted on 2-D or Doppler imaging. AORTIC VALVE The aortic valve is normal in structure and function. Doppler and Color Flow revealed no significant aortic regurgitation. There is no significant aortic valvular stenosis. MITRAL VALVE The mitral valve is normal in structure and function. There is no evidence of mitral valve prolapse. There is no mitral valve stenosis. Doppler and Color Flow revealed no mitral valve regurgitation note d. TRICUSPID VALVE The tricuspid valve is normal in structure and function. Doppler and Color Flow revealed physiologica l tricuspid regurgitation. The PA pressure was estimated at 30 mmHg. There is no tricuspid valve sten osis. PULMONIC VALVE The pulmonic valve is not well visualized. Doppler and Color Flow revealed no pulmonic valvular regur gitation. There is no pulmonic valvular stenosis. GREAT VESSELS The aortic root is normal in size. The ascending aorta is normal in size. The IVC is normal in size a nd collapses >50% with inspiration. PERICARDIAL EFFUSION There is no evidence of significant pericardial effusion. Critical Notification Critical Value: No <Conclusion> The left ventricular systolic function is normal and the ejection fraction is within normal range. Th e Ejection Fraction is 60-65%. There is normal LV segmental wall motion. Doppler and Color Flow revealed physiological tricuspid regurgitation. The PA pressure was estimated at 30 mmHg. Signed by : Eric Lee, Electronically Approved : 06/20/2020 10:26:03
== END ==
LOC: ECHO 08:56
PROVIDERS: ATTEND Internal Medicine Cardiovascular Disease
DX: R07.9 Chest pain, unspecified (principal); R00.2 Palpitations
CPT/HCPCS: 93306

== ENCOUNTER 2020-07-12 08:23 | Observation (INO) | payer OTHER ==
[~2020-07-12] VITALS: Ht 154.9 cm; Wt 95.1 kg
[2020-07-12] MEDS ORDERED: IV RINGERS,LACTATED 1000ML 1,000 ML IV SCH (09:00)
[2020-07-12 09:12] LABS: BILIRUBIN,URINE NEGATIVE (NEG); CLARITY,URINE CLEAR; COLOR,URINE YELLOW; NITRITE,URINE NEGATIVE (NEG); PROTEIN,URINE NEGATIVE (NEG-TRACE); UROBILINOGEN,URINE 0.2 mg/dL (0.2 mg/dL)
[2020-07-12 09:23] LABS: BACTERIA,URINE FEW /HPF (0-FEW); RBC,URINE 0 /HPF (0-2); WBC,URINE 20-40 /HPF (0-4)
[2020-07-12 09:24] LABS: YEAST,URINE PRESENT /HPF
== END 2020-07-12 10:33 | disposition home or self-care (01) ==
LOC: 3 SO LND 08:23
PROVIDERS: ADMIT Obstetrics & Gynecology; ATTEND Obstetrics & Gynecology
DX: O62.9 Abnormality of forces of labor, unspecified (principal); Z3A.36 36 weeks gestation of pregnancy; Z79.899 Other long term (current) drug therapy
CPT/HCPCS: 59025; 81001; 87086; G0378; G0379

== ENCOUNTER 2020-08-03 16:34 | Inpatient (IN) | payer OTHER ==
[~2020-08-03] VITALS: Ht 154.9 cm; Wt 96.6 kg
--- NOTE | 2020-08-03 18:43 | PDOC1 ---
OB - History Hx of Present Care: Limited Care Ultrasounds: Normal mid trimester US Obstetrical Complications: Other (H/o PTL this . Completed corticosteroids) Medical Complications: None Past Family/Social History * Past Medical, Surgical, Family and Obstetric Histories reviewed from chart. Rubella: Immune RPR/VDRL: Negative GBS Status: Negative HBsAG: Negative OB - Chief Complaint & HPI Date of Admission: Date of Admission: Aug 03, 2020 at 16:34 Chief Complaint/History : 3 Para: 2 EGA: 39 Reason for admission: active labor Admission Nurse Assessment Rev: Yes OB - Admission Exam Physical Exam HEENT: Normal Heart: Regular Rate Lungs: Clear Abdomen: Gravid, Non tender, Soft Extremities: Edema Reflexes: Normal Cervical Dilatation: 3cm Effacement: 75% Station: -3 Membranes: Intact Accelerations: Accelerations Present Decelerations: No decelerations Contractions on Admission: 6-10 Minutes Apart Intensity: Moderate Text A: 39 wks IUP Active labor H/o PTL this : completed corticosteroids P: Admit for labor management. JOSTIN DUNN Jr, MD Aug 03, 2020 18:43
[2020-08-03] MEDS ORDERED: LIDOCAINE 1% PF 30 ML VIAL. INJ PRN (19:15)
[2020-08-03] MEDS ORDERED: OXYTOCIN 30 UNIT/500 ML PREMIX 500 ML IV PRN ×2 (19:15)
[2020-08-03] MEDS ORDERED: TERBUTALINE 1 MG/ML VIAL. SQ PRN (19:15)
[2020-08-03] MEDS ORDERED: MAG HYDROX/ALUMINUM HYD/SIMETH 30 ML ORAL.SUSP PO PRN (19:15)
[2020-08-03] MEDS ORDERED: ACETAMINOPHEN 325 MG TABLET. PO PRN (19:15)
[2020-08-03] MEDS ORDERED: fentaNYL PF VIAL 100 MCG/2 ML VIAL IVP PRN (19:15)
[2020-08-03] MEDS ORDERED: ONDANSETRON PF 4 MG/2 ML VIAL. IVP PRN (19:15)
[2020-08-03] MEDS ORDERED: 0.9 % SODIUM CHLORIDE 10 ML DISP.SYRIN. IV PRN (19:15)
[2020-08-03 19:48] LABS: BILIRUBIN,URINE NEGATIVE (NEG); CLARITY,URINE CLEAR; COLOR,URINE YELLOW; NITRITE,URINE NEGATIVE (NEG); PROTEIN,URINE NEGATIVE (NEG-TRACE); UROBILINOGEN,URINE 0.2 mg/dL (0.2 mg/dL)
[2020-08-03 19:56] LABS: BARBITURATES POS (NEG); BENZODIAZEPINES NEG (NEG); CANNABINOIDS NEG (NEG); COCAINE NEG (NEG); METHADONE NEG (NEG); OPIATES NEG (NEG); PHENCYCLIDINE NEG (NEG)
[2020-08-03 19:57] LABS: AMPHETAMINE/METHAMPHETAMINE NEG (NEG); RBC,URINE OCC /HPF (0-2)
[2020-08-03 19:58] LABS: BACTERIA,URINE FEW /HPF (0-FEW); YEAST,URINE PRESENT /HPF
[2020-08-03] MEDS ORDERED: OXYTOCIN PREMIX 30 UNIT/500 ML NS BAG. IV ONE (20:00)
[2020-08-03 20:28] LABS: BASO % 0 % (0-3); EOS % 0 % (0-3); HEMATOCRIT 33.5 % (36.0-47.0); HEMOGLOBIN 10.9 g/dL (12.0-15.5); LYMPH # 1.8 x10^3/uL (1.0-4.8); LYMPH % 20 % (24-48); MEAN CORPUSCULAR HEMOGLOBIN 28 pg (25-35); MEAN CORPUSCULAR HGB CONC 33 g/dL (31-37); MEAN CORPUSCULAR VOLUME 84 fL (79-100); MONO % 12 % (0-9); NEUT # 5.9 x10^3/uL (1.8-7.7); NEUT % 68 % (31-73); PLATELET COUNT 318 x10^3/uL (140-400); RED BLOOD COUNT 3.97 x10^6/uL (3.50-5.40); WHITE BLOOD COUNT 8.8 x10^3/uL (4.0-11.0)
[2020-08-04] MEDS: IV RINGERS,LACTATED 1000ML 1,000 ML IV SCH ×2 (05:29→13:45)
[2020-08-04] MEDS: fentaNYL PF VIAL 100 MCG/2 ML VIAL IVP PRN ×2 (13:52→15:53)
[2020-08-04] MEDS ORDERED: ROPIVacaine 0.2% PF 10 ML VIAL. ONE ×2 (17:50→18:00)
[2020-08-04] MEDS ORDERED: L&D EPIDURAL SYRINGE 50 ML ONE (17:50)
[2020-08-04] MEDS ORDERED: L&D EPIDURAL 50 ML SYRINGE. ONE (18:00)
[2020-08-04] MEDS ORDERED: PHENYLEPHRINE in 0.9% NACL PF 1 MG/10 ML SYRINGE. IV PRN (18:30)
[2020-08-04] MEDS ORDERED: ROPIVacaine 0.2% PF 10 ML VIAL. EPID PRN (18:30)
[2020-08-04] MEDS ORDERED: ATROPINE 0.5 MG/5 ML DISP.SYRINGE. IV PRN (18:30)
[2020-08-04] MEDS ORDERED: ePHEDrine PF IN SALINE 50 MG/10 ML SYRINGE. IV PRN (18:30)
[2020-08-04] MEDS ORDERED: IV RINGERS,LACTATED 500ML 500 ML IV PRN (18:30)
[2020-08-04] MEDS ORDERED: BUPIVACAINE MPF 0.25% 30 ML VIAL. EPID PRN (18:30)
[2020-08-04] MEDS ORDERED: L&D EPIDURAL SYRINGE 50 ML EPID PRN (18:30)
[2020-08-04] MEDS ORDERED: fentaNYL PF VIAL 100 MCG/2 ML VIAL EPID PRN (18:30)
[2020-08-04] MEDS ORDERED: NALOXONE 0.4 MG/ML VIAL. IV PRN (18:30)
[2020-08-04] MEDS ORDERED: IV RINGERS,LACTATED 1000ML 1,000 ML IV SCH (18:30)
[2020-08-04] MEDS ORDERED: OXYTOCIN 30 UNIT/500 ML PREMIX 500 ML IV PRN (19:45)
[2020-08-04] MEDS ORDERED: ACETAMINOPHEN 325 MG TABLET. PO PRN (19:45)
[2020-08-04] MEDS ORDERED: MAGNESIUM HYDROXIDE 2,400 MG/30 ML ORAL.SUSP. PO PRN (19:45)
[2020-08-04] MEDS ORDERED: PHENYLEPH/MINERAL OIL/PETROLAT RECTAL OINTMENT TUBE. RC PRN (19:45)
[2020-08-04] MEDS ORDERED: HYDROCORTISONE 1% TOPICAL OINTMENT 30GM TUBE. TP PRN (19:45)
[2020-08-04] MEDS ORDERED: SIMETHICONE 80 MG TAB.CHEW PO PRN (19:45)
[2020-08-04] MEDS ORDERED: ZOLPIDEM 5 MG TABLET. PO PRN (19:45)
[2020-08-04] MEDS ORDERED: TDaP (Adacel) per PROTOCOL. MC PRN (19:45)
[2020-08-04] MEDS ORDERED: DOCUSATE SODIUM 100 MG CAPSULE. PO PRN (19:45)
[2020-08-04] MEDS ORDERED: MMR per PROTOCOL. MC PRN (19:45)
[2020-08-04] MEDS ORDERED: diphenhydrAMINE HCL 25 MG CAPSULE PO PRN (19:45)
[2020-08-04] MEDS ORDERED: MAG HYDROX/ALUMINUM HYD/SIMETH 30 ML ORAL.SUSP PO PRN (19:45)
[2020-08-04] MEDS ORDERED: 0.9 % SODIUM CHLORIDE 10 ML DISP.SYRIN. IV PRN (19:45)
[2020-08-04] MEDS ORDERED: BENZOCAINE 20% TOPICAL AEROSOL SPRAY 57GM CAN. TP PRN (19:45)
--- NOTE | 2020-08-04 19:45 | PDOC ---
VAGINAL DELIVERY DATE DATE: 08/04/20 TIME: 19:44 : 3 Para: 3 EGA: 39 VAGINAL DELIVERY: VTX VACCUM ASSISTED: No PLACENTA: Spontaneous 8/9 SEX: Male WEIGHT Weight [ 7 lbs. 4 oz ] Nuchal Cord: Yes, Times 1 Amniotic Fluid: Clear PAIN: Epidural EPISIOTOMY: No EXTENSION: No EBL 300 ml COMPLICATIONS none CONDITION pt. stable Signs of Intrauterine Infectio: None Shoulder Dystocia: No JOSTIN DUNN Jr, MD Aug 04, 2020 19:45
[2020-08-04 22:05] VITALS: BP 130/86
[2020-08-04] MEDS: IBUPROFEN 400 MG TABLET. PO PRN (22:53)
[2020-08-04 23:00] VITALS: BP 118/66
[2020-08-05 04:54] VITALS: BP 112/65
[2020-08-05] MEDS: IBUPROFEN 400 MG TABLET. PO PRN (06:31)
[2020-08-05 08:00] VITALS: BP 134/77
[2020-08-05] MEDS ORDERED: FERROUS SULFATE 325 MG TABLET. PO SCH (08:00)
[2020-08-05 08:13] LABS: BASO # 0.1 x10^3/uL (0.0-0.2); BASO % 1 % (0-3); EOS % 0 % (0-3); HEMATOCRIT 30.4 % (36.0-47.0); HEMOGLOBIN 9.8 g/dL (12.0-15.5); LYMPH # 1.6 x10^3/uL (1.0-4.8); LYMPH % 10 % (24-48); MEAN CORPUSCULAR HEMOGLOBIN 27 pg (25-35); MEAN CORPUSCULAR HGB CONC 32 g/dL (31-37); MEAN CORPUSCULAR VOLUME 84 fL (79-100); MONO # 1.7 x10^3/uL (0.0-1.1); MONO % 11 % (0-9); NEUT # 12.4 x10^3/uL (1.8-7.7); NEUT % 78 % (31-73); PLATELET COUNT 281 x10^3/uL (140-400); RED CELL DISTRIBUTION WIDTH 16.1 % (11.5-14.5); WHITE BLOOD COUNT 15.9 x10^3/uL (4.0-11.0)
[2020-08-05] MEDS ORDERED: MULTIVITAMIN with MINERAL TABLET. PO SCH (09:00)
--- NOTE | 2020-08-05 11:34 | PDOC ---
OB Progress Note Date of Service 08/05/20 Time of Evaluation 1130 Notes Pt. feeling well. No complaints. Lab Laboratory Tests Test 08/03/20 19:00 08/03/20 19:20 08/03/20 20:00 08/05/20 08:00 Urine Collection Type Unknown Urine Color Yellow Urine Clarity Clear Urine pH 7.0 (<5.0-8.0) Urine Specific [place] 1.020 (1.000-1.030) Urine Protein Negative mg/dL (NEG-TRACE) Urine Glucose (UA) Negative mg/dL (NEG) Urine Ketones (Stick) Negative mg/dL (NEG) Urine Blood Negative (NEG) Urine Nitrite Negative (NEG) Urine Bilirubin Negative (NEG) Urine Urobilinogen Dipstick 0.2 mg/dL (0.2 mg/dL) Urine Leukocyte Esterase Moderate (NEG) Urine RBC Occ /HPF (0-2) Urine WBC 1-4 /HPF (0-4) Urine Squamous Epithelial Cells Mod /LPF Urine Bacteria Few /HPF (0-FEW) Urine Mucus Mod /LPF Urine Yeast Present /HPF Urine Opiates Screen Neg (NEG) Urine Methadone Screen Neg (NEG) Urine Barbiturates Pos (NEG) Urine Phencyclidine Screen Neg (NEG) Urine Amphetamine/Methamphetamine Neg (NEG) Urine Benzodiazepines Screen Neg (NEG) Urine Cocaine Screen Neg (NEG) Urine Cannabinoids Screen Neg (NEG) Urine Ethyl Alcohol Neg (NEG) SARS-CoV-2 RNA (KAREN) Negative (Negative) SARS-CoV-2 Antigen (Rapid) Negative (NEGATIVE) White Blood Count 8.8 x10^3/uL (4.0-11.0) 15.9 x10^3/uL (4.0-11.0) Red Blood Count 3.97 x10^6/uL (3.50-5.40) 3.60 x10^6/uL (3.50-5.40) Hemoglobin 10.9 g/dL (12.0-15.5) 9.8 g/dL (12.0-15.5) Hematocrit 33.5 % (36.0-47.0) 30.4 % (36.0-47.0) Mean Corpuscular Volume 84 fL (79-100) 84 fL (79-100) Mean Corpuscular Hemoglobin 28 pg (25-35) 27 pg (25-35) Mean Corpuscular Hemoglobin Concent 33 g/dL (31-37) 32 g/dL (31-37) Red Cell Distribution Width 16.0 % (11.5-14.5) 16.1 % (11.5-14.5) Platelet Count 318 x10^3/uL (140-400) 281 x10^3/uL (140-400) Neutrophils (%) (Auto) 68 % (31-73) 78 % (31-73) Lymphocytes (%) (Auto) 20 % (24-48) 10 % (24-48) Monocytes (%) (Auto) 12 % (0-9) 11 % (0-9) Eosinophils (%) (Auto) 0 % (0-3) 0 % (0-3) Basophils (%) (Auto) 0 % (0-3) 1 % (0-3) Neutrophils # (Auto) 5.9 x10^3/uL (1.8-7.7) 12.4 x10^3/uL (1.8-7.7) Lymphocytes # (Auto) 1.8 x10^3/uL (1.0-4.8) 1.6 x10^3/uL (1.0-4.8) Monocytes # (Auto) 1.0 x10^3/uL (0.0-1.1) 1.7 x10^3/uL (0.0-1.1) Eosinophils # (Auto) 0.0 x10^3/uL (0.0-0.7) 0.0 x10^3/uL (0.0-0.7) Basophils # (Auto) 0.0 x10^3/uL (0.0-0.2) 0.1 x10^3/uL (0.0-0.2) Laboratory Tests Test 08/05/20 08:00 White Blood Count 15.9 x10^3/uL (4.0-11.0) Red Blood Count 3.60 x10^6/uL (3.50-5.40) Hemoglobin 9.8 g/dL (12.0-15.5) Hematocrit 30.4 % (36.0-47.0) Mean Corpuscular Volume 84 fL (79-100) Mean Corpuscular Hemoglobin 27 pg (25-35) Mean Corpuscular Hemoglobin Concent 32 g/dL (31-37) Red Cell Distribution Width 16.1 % (11.5-14.5) Platelet Count 281 x10^3/uL (140-400) Neutrophils (%) (Auto) 78 % (31-73) Lymphocytes (%) (Auto) 10 % (24-48) Monocytes (%) (Auto) 11 % (0-9) Eosinophils (%) (Auto) 0 % (0-3) Basophils (%) (Auto) 1 % (0-3) Neutrophils # (Auto) 12.4 x10^3/uL (1.8-7.7) Lymphocytes # (Auto) 1.6 x10^3/uL (1.0-4.8) Monocytes # (Auto) 1.7 x10^3/uL (0.0-1.1) Eosinophils # (Auto) 0.0 x10^3/uL (0.0-0.7) Basophils # (Auto) 0.1 x10^3/uL (0.0-0.2) Medications Current Medications Sodium Chloride (Normal Saline Flush) 3 ml QSHIFT PRN IV AFTER MEDS AND BLOOD DRAWS; Start 08/03/20 at 19:15; Stop 08/05/20 at 02:24; Status DC Ringer's Solution 1,000 ml @ 125 mls/hr Q8H IV Last administered on 08/04/20at 13:45; Start 08/03/20 at 19:15; Stop 08/05/20 at 02:24; Status DC Fentanyl Citrate (Fentanyl 2ml Vial) 50 mcg PRN Q10MIN PRN IVP Labor pain; Start 08/03/20 at 19:15; Stop 08/05/20 at 02:24; Status DC Fentanyl Citrate (Fentanyl 2ml Vial) 100 mcg PRN Q10MIN PRN IVP Labor pain Last administered on 08/04/20at 15:53; Start 08/03/20 at 19:15; Stop 08/05/20 at 02:24; Status DC Acetaminophen (Tylenol) 650 mg PRN Q6HRS PRN PO MILD PAIN / TEMP > 100.3'F; Start 08/03/20 at 19:15; Stop 08/05/20 at 02:24; Status DC Ondansetron HCl (Zofran) 4 mg PRN Q4HRS PRN IVP NAUSEA/VOMITING; Start 08/03/20 at 19:15; Stop 08/05/20 at 02:24; Status DC Al Hydroxide/Mg Hydroxide (Mylanta Plus Xs) 30 ml PRN Q4HRS PRN PO HEARTBURN / GAS; Start 08/03/20 at 19:15; Stop 08/05/20 at 02:24; Status DC Terbutaline Sulfate (Brethine) 0.25 mg 1X PRN PRN SQ SEE COMMENTS; Start 08/03/20 at 19:15; Stop 08/04/20 at 19:14; Status DC Lidocaine HCl (Xylocaine 1% Pf 30ml Vial) 30 ml 1X PRN PRN INJ SEE COMMENTS; Start 08/03/20 at 19:15; Stop 08/05/20 at 02:24; Status DC Oxytocin 500 ml @ 0 mls/hr CONT PRN IV SEE I/O RECORD Last administered on 08/04/20at 05:29; Start 08/03/20 at 19:15; Stop 08/05/20 at 02:24; Status DC Oxytocin 500 ml @ 0 mls/hr CONT PRN PRN IV Post delivery bleeding Last administered on 08/04/20at 20:55; Start 08/03/20 at 19:15; Stop 08/05/20 at 02:24; Status DC Ropivacaine (Naropin 0.2%) 10 ml STK-MED ONCE .ROUTE ; Start 08/04/20 at 17:50; Stop 08/04/20 at 17:50; Status DC Fentanyl Citrate 50 ml @ As Directed STK-MED ONCE .ROUTE ; Start 08/04/20 at 17:50; Stop 08/04/20 at 17:50; Status DC Ringer's Solution 1,000 ml @ 1,000 mls/hr Q1H IV ; Start 08/04/20 at 18:30; Stop 08/04/20 at 19:29; Status DC Ringer's Solution 500 ml @ 500 mls/hr 1X PRN PRN IV HYPOTENSION; Start 08/04/20 at 18:30; Stop 08/05/20 at 02:24; Status DC Ephedrine Sulfate (ePHEDrine PF IN SALINE SYRINGE) 10 mg PRN Q2MIN PRN IV IF SB P<90; Start 08/04/20 at 18:30; Stop 08/05/20 at 02:24; Status DC Phenylephrine HCl (PHENYLEPHRINE in 0.9% NACL PF) 0.05 mg PRN Q2MIN PRN IV SBP less than 90; Start 08/04/20 at 18:30; Stop 08/05/20 at 02:24; Status DC Atropine Sulfate (ATROPINE 0.5mg SYRINGE) 0.4 mg PRN Q2MIN PRN IV FOR SYMPTOMATIC BRADYCARDIA; Start 08/04/20 at 18:30; Stop 08/05/20 at 02:24; Status DC Naloxone HCl (Narcan) 0.04 mg PRN Q1MIN PRN IV SEE COMMENTS; Start 08/04/20 at 18:30; Stop 08/05/20 at 02:24; Status DC Fentanyl Citrate (Fentanyl 2ml Vial) 100 mcg PRN 1X PRN EPID FOR ANESTHESIA; Start 08/04/20 at 18:30; Stop 08/05/20 at 02:24; Status DC Bupivacaine HCl (Sensorcaine Mpf 0.25%) 10 ml PRN 1X PRN EPID FOR ANESTHESIA; Start 08/04/20 at 18:30; Stop 08/05/20 at 02:24; Status DC Fentanyl Citrate 50 ml @ 14 mls/hr CONT PRN EPID PAIN; Start 08/04/20 at 18:30; Stop 08/05/20 at 02:24; Status DC Ropivacaine (Naropin 0.2%) 20 ml 1X PRN PRN EPID PER ANESTHESIA; Start 08/04/20 at 18:30; Stop 08/05/20 at 02:24; Status DC Sodium Chloride (Normal Saline Flush) 10 ml QSHIFT PRN IV AFTER MEDS AND BLOOD DRAWS; Start 08/04/20 at 19:45 Oxytocin 500 ml @ 62.5 mls/hr CONT PRN IV SEE I/O RECORD; Start 08/04/20 at 19:45; Stop 08/05/20 at 03:44; Status DC Acetaminophen (Tylenol) 650 mg PRN Q6HRS PRN PO MILD PAIN / TEMP > 100.3'F; Start 08/04/20 at 19:45 Ibuprofen (Motrin) 800 mg PRN Q8HRS PRN PO INFLAMMATION/PAIN PREVENTION Last a dministered on 08/05/20at 06:31; Start 08/04/20 at 19:45 Docusate Sodium (Colace) 100 mg PRN BID PRN PO CONSTIPATION; Start 08/04/20 at 19:45 Magnesium Hydroxide (Milk Of Magnesia) 2,400 mg PRN DAILY PRN PO CONSTIPATION; Start 08/04/20 at 19:45 Al Hydroxide/Mg Hydroxide (Mylanta Plus Xs) 30 ml PRN Q4HRS PRN PO HEARTBURN / GAS; Start 08/04/20 at 19:45 Simethicone (Gas-X) 80 mg PRN AFTMEALHC PRN PO GAS / BLOATING; Start 08/04/20 at 19:45 Diphenhydramine HCl (Benadryl) 25 mg PRN Q6HRS PRN PO ITCHING; Start 08/04/20 at 19:45 Benzocaine (Americaine) 1 spray PRN QID PRN TP TOPICAL PAIN; Start 08/04/20 at 19:45 Phenyleph/Shark Oil/Min Oil/Petrol (Preparation H) 1 laureano PRN QID PRN RC RECTAL PAIN; Start 08/04/20 at 19:45 Hydrocortisone (Cortaid) 1 laureano PRN QID PRN TP PERINEAL PAIN; Start 08/04/20 at 19:45 Ferrous Sulfate (Feosol) 325 mg BIDWMEALS PO ; Start 08/05/20 at 08:00 Zolpidem Tartrate (Ambien) 5 mg PRN QHS PRN PO INSOMNIA, MAY REPEAT X1; Start 08/04/20 at 19:45 Info (Do NOT chart on this placeholder) 1 ea 1X PRN PRN MC SEE COMMENTS; Start 08/04/20 at 19:45 Info (Do NOT chart on this placeholder) 1 ea 1X PRN PRN MC SEE COMMENTS; Start 08/04/20 at 19:45 Oxycodone/ Acetaminophen (Percocet 5/325) 2 tab PRN Q4HRS PRN PO MODERATE PAIN, SEVERE PAIN; Start 08/04/20 at 19:45 Multivitamins (Thera M Plus) 1 tab DAILY PO ; Start 08/05/20 at 09:00 Active Scripts Active Macrobid 100 Mg Capsule (Nitrofurantoin Monohyd/M-Cryst) 100 Mg Capsule 1 Cap PO BID 7 Days Diclofenac Sodium 50 Mg Tablet.dr 1 Tab PO BID PRN Exam Abd: soft, mild tenderness, fundus firm Assessment POD#1 s/p Plan of Care: Continue current Tx, Mgmt JOSTIN DUNN Jr, MD Aug 05, 2020 11:33
[2020-08-05 12:00] VITALS: BP 111/62
[2020-08-05 18:00] VITALS: BP 115/74
[2020-08-05] MEDS: oxyCODONE/APAP 5/325 1 TAB TABLET PO PRN (18:04)
--- NOTE | 2020-08-05 19:38 | NUR ---
Pt. refuses PNV
[2020-08-05 22:00] VITALS: BP 108/65
[2020-08-06] MEDS: IBUPROFEN 400 MG TABLET. PO PRN (05:02)
[2020-08-06 05:04] VITALS: BP 116/66
[2020-08-06] MEDS: oxyCODONE/APAP 5/325 1 TAB TABLET PO PRN (08:07)
[2020-08-06 08:11] VITALS: BP 118/67
--- NOTE | 2020-08-06 08:30 | NUR ---
Dr. Campbell at to discuss plan of care and treatment options about possible spinal headache. Pt. states headache become worse while up standing and has a lot of neck pain as well. Pt. states will consider all options but will continue to increase fluids and rest at this time. Pt. verbalized understanding of this care.
--- NOTE | 2020-08-06 10:19 | PDOC3 ---
OB DISCHARGE SUMMARY DATE OF ADMISSION: 08/03/20 DATE OF DISCHARGE: 08/06/20 REASON FOR ADMISSION: Onset of labor INTRAPARTUM PROCEDURES: Spontanous Vag Deliv DISCHARGE DIAGNOSIS: Term Delivered DISCHARGE INFORMATION: Activity (ad natasha), Diet (regular), Instructions (pelvic rest x 6 wks) HOSPITAL COURSE Term gestation delivered vaginally without complications. JOSTNI DUNN Jr, MD Aug 06, 2020 10:19
--- NOTE | 2020-08-06 10:21 | DISCH ---
DISCHARGE INSTRUCTIONS Condition on Discharge Condition on Discharge: Stable Activity After Discharge Activity Instructions for Disc: Activity as tolerated Lifting Instructions after Dis: No heavy lifting Driving Instructions after Dis: Do not drive today Diet after Discharge Diet after Discharge: Regular Contacting the [facility] after DC Call your doctor for: Concerns you may have Follow-Up Follow up with: Dr. Webb in 6 wks JOSTIN WEBB Jr, MD Aug 06, 2020 10:21
[2020-08-06 12:00] VITALS: BP 111/78
--- NOTE | 2020-08-06 13:25 | NUR ---
Pt. was given verbal and written discharge information about NB and care for herself. Pt. verbalized understanding and all questions or concerns were addressed. Pt. escorted out per W/C to hospital exit with W/C.
== END 2020-08-06 12:10 | disposition home or self-care (01) | DRG 807 ==
LOC: 3 SO LND 16:34 → OBSVTOIN 16:34 → 3 SO LND 08-05
PROVIDERS: ADMIT Obstetrics & Gynecology; ATTEND Obstetrics & Gynecology
PROC: 10E0XZZ Delivery of Products of Conception, External Approach (ICD-10-PCS; principal; 2020-08-04)
DX: O69.81X0 Labor and delivery complicated by cord around neck, without compression, not applicable or unspecified (principal); Z37.0 Single live birth; Z3A.39 39 weeks gestation of pregnancy; Z20.822 Contact with and (suspected) exposure to COVID-19
CPT/HCPCS: 36415; 80307; 81001; 85025; 86850; 86900; 86901; 87086; 87426; G0378; J2590; J2795; J3010; J7120; U0003; U0005